=== PATIENT | male | born 1950 | race African-American/Black ===

== ENCOUNTER 2017-07-17 05:31 | Emergency (ER) | payer MEDICARE, OTHER ==
[2017-07-17] MEDS ORDERED: IBUPROFEN 400 MG TABLET. PO ×2 (05:55)
[2017-07-17] MEDS: IBUPROFEN 400 MG TABLET. PO ×2 (06:02)
== END 2017-07-17 06:03 | disposition home or self-care (01) ==
LOC: ER 05:31
DX: T28.0XXA Burn of mouth and pharynx, initial encounter (principal); F17.210 Nicotine dependence, cigarettes, uncomplicated; X08.8XXA Exposure to other specified smoke, fire and flames, initial encounter; Y93.89 Activity, other specified; Y92.89 Other specified places as the place of occurrence of the external cause; Y99.8 Other external cause status
CPT/HCPCS: 99282

== ENCOUNTER 2018-10-11 03:09 | Emergency (ER) | payer MEDICARE, OTHER ==
[~2018-10-11] VITALS: Ht 175.3 cm; Wt 61.2 kg
[~2018-10-11 03:09] MED LIST: NAPR-695 PO
[2018-10-11 03:15] VITALS: BP 165/93
[2018-10-11] MEDS ORDERED: NAPR-695 PO (03:42)
[2018-10-11] MEDS ORDERED: HYDR-3164 PO (03:42)
--- NOTE | 2018-10-11 03:42 | PHYS DOC ---
Past Medical History Past Medical History: High Cholesterol, Hypertension Additional Past Medical Histor: HERNIA, HERNIATED DISC Additional Past Surgical Histo: HERNIA REPAIR, R ankle ORIF Smoking: Cigarettes, 1 Pack Per Day Alcohol Use: None Drug Use: None Adult General Chief Complaint Chief Complaint: MECHANICAL FALL HPI HPI 68 y/o male presents via EMS with report of right knee pain. Patient reports upon returning home from work at approximately 2300 he slipped on some wet grass and felt that his knee "twisted underneath him". Denies head trauma or neck pain. Denies LOC. Reports some knee swelling. Reports pain became worse. Patient also concerned for injury to right ankle. Prior history of ORIF. Reports some ankle pain and swelling. Denies numbness or tingling. Patient took 2 ASA prior to arrival. Review of Systems Review of Systems Constitutional: Denies fever or chills [] Eyes: Denies change in visual acuity, redness, or eye pain [] Musculoskeletal: Reports right knee pain and swelling Integument: Denies rash or skin lesions [] Neurologic: Denies headache, focal weakness or sensory changes [] Complete systems were reviewed and found to be within normal limits, except as documented in this note. Current Medications Current Medications Current Medications Medications (Trade) Dose Ordered Sig/Bernardino Start Time Stop Time Status Last Admin Dose Admin Dexamethasone (Decadron) 10 mg 1X ONCE 10/11/18 04:00 10/11/18 04:01 DC 10/11/18 03:46 10 MG Ketorolac Tromethamine (Toradol 15mg Vial) 15 mg 1X ONCE 10/11/18 04:00 10/11/18 04:01 DC 10/11/18 03:47 15 MG Allergies Allergies Allergies Coded Allergies Type Severity Reaction Last Updated Verified No Known Drug Allergies 09/23/15 No Physical Exam Physical Exam Constitutional: Well developed, well nourished, no acute distress, non-toxic appearance. [] HENT: Normocephalic, atraumatic, oropharynx moist Eyes: Conjunctiva normal, no discharge. [] Neck: Normal range of motion, no midline tenderness, supple Cardiovascular: Heart rate normal, regular rhythm Lungs & Thorax: Bilateral breath sounds clear to auscultation [] Skin: Warm, dry, no erythema Extremities: Right knee tenderness on ROM, no effusion noted, patella nontender, knee stable, no deformity, distal pulses intact (+2 DP and PT), distal sensation intact; right ankle with some tenderness on ROM, healed surgical scars noted to heel, anterior drawer test negative Neurologic: Alert and oriented X 3, no focal deficits noted. [] Psychologic: Affect normal, judgement normal, mood normal. [] Current Patient Data Vital Signs Vital Signs Date Time Temp Pulse Resp B/P (MAP) Pulse Ox O2 Delivery O2 Flow Rate FiO2 10/11/18 03:15 98.5 65 18 165/93 (117) 98 Room Air 98.5 EKG EKG [] Radiology/Procedures Radiology/Procedures PROCEDURE: KNEE RIGHT 3V Indication:PT FELL; KNEE PAIN TECHNIQUE: 3 views of the right knee COMPARISON:None FINDINGS: No acute fracture or dislocation. No joint effusion. No significant arthritic changes. IMPRESSION: As above. Electronically signed by: Angel Garay DO (10/11/2018 4:27 AM) [facility] [place] PROCEDURE: ANKLE RIGHT 3V Indication:PT FELL; ANKLE PAIN TECHNIQUE: 3 views of the right ankle COMPARISON:None FINDINGS: No acute fracture or dislocation. Ankle mortise is intact. Status post ORIF of calcaneal fracture. Vascular calcifications. IMPRESSION: As above. Electronically signed by: Angel Garay DO (10/11/2018 4:23 AM) [facility] [place] Course & Med Decision Making Course & Med Decision Making Pertinent Imaging studies reviewed. (See chart for details) Patient presents with report of mechanical slip and fall with right knee pain and concern for ankle injury. Pain addressed. ICE applied. XRs without acute process. LEONCIO applied and crutched provided. Patient also requesting to have a knee immobilizer. Advised give joint stability, LEONCIO bandage or slip on knee brace from [employer] should provide enough support until he followed with orthopedics. Patient requesting to still be provided the knee immobilizer. Knee immobilizer therefore provided. Patient stable for discharge home with outpatient follow-up with PCP/Orthopedics. Orthopedic referral provided. Discussed findings and plan with patient, who acknowledges understanding and agreement. Dragon Disclaimer Dragon Disclaimer This electronic medical record was generated, in whole or in part, using a voice recognition dictation system. Splinting Splinting : Location: R knee Pre-Made Type: LEONCIO bandages Pre-Proc Neuro Vasc Exam: normal Post-Proc Neuro Vasc Exam: normal, unchanged from pre-exam Departure Departure Impression: Primary Impression: Right knee pain Additional Impression: Right ankle pain Disposition: 01 HOME, SELF-CARE Condition: STABLE Referrals: NO PCP (PCP) RENETTA BONNER MD Patient Instructions: Arthritis, Nonspecific, [id number], Crutch Use, Ebkr-dr-Ftus, Fall Prevention and Home Safety, Nxzl-cz-Ucqo, Knee Pain, Zodk-it-Lkqt Scripts Hydrocodone/Apap 5-325 (NORCO 5-325 TABLET) 1 Each Tablet 0.5 TAB PO PRN Q6HRS PRN for PAIN, #10 TAB 0 Refills Prov: KEIKO GAVIN DO 10/11/18 Naproxen (NAPROXEN) 375 Mg Tablet 1 TAB PO TID PRN PRN for PAIN, #20 TAB 0 Refills Prov: KEIKO GAVIN DO 10/11/18 Problem Qualifiers Primary Impression: Right knee pain Chronicity: acute Qualified Codes: M25.561 - Pain in right knee Additional Impression: Right ankle pain Chronicity: chronic Qualified Codes: M25.571 - Pain in right ankle and joints of right foot; G89.29 - Other chronic pain KEIKO GAVIN DO Oct 11, 2018 03:42
[2018-10-11] MEDS ORDERED: DEXAMETHASONE 4 MG TABLET PO ONE (04:00)
[2018-10-11] MEDS ORDERED: KETOROLAC 15 MG/ML VIAL. IM ONE (04:00)
--- NOTE | 2018-10-11 04:26 | RAD ---
Indication:PT FELL; ANKLE PAIN TECHNIQUE: 3 views of the right ankle COMPARISON:None FINDINGS: No acute fracture or dislocation. Ankle mortise is intact. Status post ORIF of calcaneal fracture. Vascular calcifications. IMPRESSION: As above. Electronically signed by: Angel Garay DO (10/11/2018 4:23 AM) [facility]
--- NOTE | 2018-10-11 04:29 | RAD ---
Indication:PT FELL; KNEE PAIN TECHNIQUE: 3 views of the right knee COMPARISON:None FINDINGS: No acute fracture or dislocation. No joint effusion. No significant arthritic changes. IMPRESSION: As above. Electronically signed by: Angel Garay DO (10/11/2018 4:27 AM) [facility]
== END 2018-10-11 04:22 | disposition home or self-care (01) ==
LOC: ER 03:09
DX: M25.561 Pain in right knee (principal); G89.29 Other chronic pain; M25.571 Pain in right ankle and joints of right foot; G89.11 Acute pain due to trauma; W18.39XA Other fall on same level, initial encounter; Y93.89 Activity, other specified; Y92.038 Other place in apartment as the place of occurrence of the external cause; Y99.8 Other external cause status
CPT/HCPCS: 73562; 73610; 96372; 99284; J1885; J8540